=== PATIENT | female | born 1985 | race Caucasian/White ===

== ENCOUNTER 2024-04-28 08:29 | Day surgery (SDC) | payer BC, SELFPAY ==
[2024-04-28 09:02] VITALS: BMI 23.1
[2024-04-28 09:02] LABS: Ur HCG Qualitative* Negative (Negative)
[2024-04-28] MEDS: SODIUM CHLORIDE 0.9 % (FLUSH) 10 ML SYRINGE IVF (09:10)
[2024-04-28] MEDS: 0.9 % SODIUM CHLORIDE 500 ML 500 ML 100 ML IV (09:10)
[2024-04-28 09:22] VITALS: BP 134/86; PULSE 57; RESP 16; TEMP 36.6; O2SAT 99
[2024-04-28] MEDS: CEFAZOLIN 1 GM inj IVP (10:11)
[2024-04-28] MEDS: BUPIVACAINE 0.25% 30 ML INJECTION (10:15)
[2024-04-28 10:47] VITALS: BP 134/98; PULSE 63; RESP 16; TEMP 36.7; O2SAT 98
--- NOTE | 2024-04-28 10:51 | W.PM.PODPROC ---
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 She is in need of partial 1st ray amputation. I reviewed the procedure, recovery, expectation potential complications. These include but not limited to: Poor wound healing, infection, potential need for future surgery, continued pain, potential loss of life, she understands risks written consent was obtained. Site marked Procedure Description: Patient brought the operating room placed supine position on operating table the time IV sedation was initiated local anesthetic injected into the left 2nd toe. She was prepped and draped in sterile fashion. Standard time-out protocol followed. Left foot was exsanguinated and tourniquet inflated. A distal fishmouth incision was made just proximal to the eponychial fold dorsally and extending to the plantar toe pulp. Incision was carried down to bone. The distal phalanx was disarticulated and the nail unit and distal phalanx removed in total. Wound was irrigated normal sterile saline. Tourniquet was released and all bleeding vessels cauterized. Incision closed with 3-0 nylon. Sterile dressing was applied. She was transferred from OR to same-day surgery with vital signs stable vascular status intact. She is given both written and verbal postop instructions. She is given Tylenol 3 for pain. She is weight-bearing as tolerated. She will follow up in clinic in 3 days. Anesthesia: MAC and local Hemostasis: ankle Estimated blood loss (mL): 2 Specimens: none sent Disposition: same day
--- NOTE | 2024-04-28 10:53 | W.ANESCHARGE ---
Anesthesia Charges Start Date/Time Anesthesia Start Date: 04/28/24 Anesthesia Start Time: 10:02 Stop Date/Time Anesthesia Stop Date: 04/28/24 Anesthesia Stop Time: 10:47
[2024-04-28 11:00] VITALS: BP 135/92; PULSE 66; RESP 16; O2SAT 97
--- NOTE | 2024-04-28 11:00 | W.ANESCHARGE ---
Anesthesia Charges Start Date/Time Anesthesia Start Date: 04/28/24 Anesthesia Start Time: 10:02 Stop Date/Time Anesthesia Stop Date: 04/28/24 Anesthesia Stop Time: 10:47
[2024-04-28 11:15] VITALS: BP 133/82; PULSE 66; RESP 16; O2SAT 97
== END 2024-04-28 11:45 | disposition home or self-care (01) ==
LOC: OR 08:36
PROVIDERS: Anesthesiology; PCP Nurse Practitioner Family; Visit Provider Podiatrist
PROC: (CPT 28153; principal; 2024-04-28 10:00)
DX: M19.072 Primary osteoarthritis, left ankle and foot (principal); M79.675 Pain in left toe(s); G89.29 Other chronic pain
CPT/HCPCS: 28153; 01480; 81025; J0665; J0690; J2250; J2704; J3490; J7030